=== PATIENT | male | born 1990 | race Caucasian/White ===

== ENCOUNTER → 2023-11-14 | Outpatient (CLI) | payer OTHER, SELFPAY ==
--- NOTE | 2023-11-14 09:40 | RAD_ITS ---
STUDY: X-RAY CHEST REASON FOR EXAM: Male, 33 years old. Cough and shortness of breath TECHNIQUE: PA and lateral views of the chest. COMPARISON: Comparison is made with prior study dated March 03, 2023. FINDINGS: Findings suggestive of early infiltrate in the posterior medial segment of the right lower lobe. There is no demonstrated pleural abnormality. Normal size heart. Normal mediastinum and pedro. Normal visualized pulmonary arteries. Normal visualized aortic arch and descending thoracic aorta. Normal visualized thoracic spine. Normal visualized ribs, clavicles, and shoulders. There is no demonstrated abnormality of the visualized soft tissue structures of the upper abdomen. RAD/Chest PA and Lateral IMPRESSION: Findings suggestive of early infiltrate in the posterior medial segment of the right lower lobe. Electronically Signed: Humble Ordaz MD at 9:53 EDT ,
== END | disposition home or self-care (01) ==
LOC: MTRAD 09:39
PROVIDERS: PCP Family Medicine; Referring Provider Physician Assistant Surgical; Visit Provider Physician Assistant Surgical
DX: R05.9 Cough, unspecified (principal)
CPT/HCPCS: 71046